=== PATIENT | male | born 1995 | race Caucasian/White ===

== ENCOUNTER 2017-06-09 12:55 | Emergency (ER) | payer OTHER ==
[~2017-06-09] VITALS: Ht 177.8 cm; Wt 56.3 kg
[~2017-06-09 12:55] MED LIST: FOCALIN5 MG
[2017-06-09 14:42] LABS: AMPHETAMINE NEGATIVE (500 ng/mL); BARBITURATES NEGATIVE (200 ng/mL); BENZODIAZEPINES NEGATIVE (150 ng/mL); COCAINE NEGATIVE (150 ng/mL); INTERNAL CONTROLS VALID? YES; METHADONE NEGATIVE (200 ng/mL); METHAMPHETAMINE NEGATIVE (500 ng/mL); OPIATES (MORPHINE) NEGATIVE (100 ng/mL); OXYCODONE NEGATIVE (100 ng/mL); PHENCYCLIDINE NEGATIVE (25 ng/mL); PROPOXYPHENE NEGATIVE (300 ng/mL); THC CANNABINOIDS NEGATIVE (50 ng/mL); TRICYCLIC ANTIDEPRESSANTS NEGATIVE (300 ng/mL)
[2017-06-09 15:33] VITALS: BP 122/74
== END 2017-06-09 15:33 | disposition home or self-care (01) ==
LOC: EME 12:55
PROVIDERS: Emergency Medicine
DX: F43.21 Adjustment disorder with depressed mood (principal); F10.129 Alcohol abuse with intoxication, unspecified; Y90.1 Blood alcohol level of 20-39 mg/100 ml; Z04.6 Encounter for general psychiatric examination, requested by authority; F90.9 Attention-deficit hyperactivity disorder, unspecified type
CPT/HCPCS: 90837; 99281; 99285; G0480